=== PATIENT | female | born 1995 | race Caucasian/White ===

== ENCOUNTER 2017-05-10 11:48 | Emergency (ER) | payer OTHER, MEDICAID ==
[2017-05-10 12:00] VITALS: BP 122/89
[2017-05-10] MEDS ORDERED: Famotidine 20 MG Tab PO ONE (12:22)
[2017-05-10] MEDS ORDERED: predniSONE 20 MG Tab PO ONE (12:22)
[2017-05-10] MEDS ORDERED: diphenhydrAMINE 50 MG Cap PO ONE (12:22)
--- NOTE | 2017-05-10 12:27 | EDM.PDOC ---
ED HPI GENERAL MEDICAL PROBLEM - General Chief Complaint: Skin Complaint Stated Complaint: HIVES,VOMITING AND DIARRHEA Time Seen by Provider: 05/10/17 12:05 Source of Information: Reports: Patient History Limitations: Reports: No Limitations - History of Present Illness INITIAL COMMENTS - FREE TEXT/NARRATIVE: Patient is a 21-year-old female presents ED complaining of a rash that developed to her body early Wednesday morning. Rash has persistently gotten worse over the course of the past 2 days. Patient states she did develop nausea vomiting along with some diarrhea last night. had similar symptoms. Symptoms have resolved for gastroenteritis. Patient took a shower and noted the rash increased. She continues to itch it. Has utilized Benadryl topical cream with no significant improvements. She does note using new laundry soap starting last week. She has attempted to alleviate the itching with oatmeal bath with no luck. Rash spares her soles and palms. She denies any new lotions, medicines, foods, or any other exposure that may precipitated the rash. Denies any ingestion of bad or questionable food or recent out of county travel. - Related Data Allergies Allergy/AdvReac Type Severity Reaction Status Date / Time No Known Allergies Allergy Verified 05/10/17 11:54 Home Meds: Home Meds [id number]/Iron Fumarate/FA/DSS [ 19 Tablet] 1 tab PO DAILY 05/10/17 [ History] ED ROS GENERAL - Review of Systems Review Of Systems: See Below Constitutional: Reports: Decreased Appetite. Denies: Fever, Chills HEENT: Reports: No Symptoms Respiratory: Denies: Shortness of Breath, Wheezing Cardiovascular: Reports: No Symptoms GI/Abdominal: Reports: No Symptoms : Denies: Dysuria Musculoskeletal: Reports: No Symptoms Skin: Reports: Pruritis, Urticaria Neurological: Reports: No Symptoms ED EXAM, SKIN/RASH Exam: See Below Exam Limited By: No Limitations General Appearance: Alert, WD/WN, No Apparent Distress Ears: Normal External Exam, Normal Canal, Hearing Grossly Normal, Normal TMs Nose: Normal Inspection, Normal Mucosa, No Blood Throat/Mouth: Normal Inspection, Normal Oropharynx, Normal Voice, No Airway Compromise Head: Atraumatic, Normocephalic Neck: Supple, Non-Tender, Full Range of Motion Respiratory/Chest: No Respiratory Distress, Lungs Clear, Normal Breath Sounds, No Accessory Muscle Use, Chest Non-Tender Cardiovascular: Normal Peripheral Pulses, Regular Rate, Rhythm Peripheral Pulses: 2+: Radial (R) GI/Abdominal: Normal Bowel Sounds, Soft, Non-Tender, No Organomegaly Back Exam: Full Range of Motion Extremities: Normal Range of Motion, Non-Tender, No Pedal Edema, Normal Capillary Refill Neurological: Alert, Oriented, CN II-XII Intact, Normal Cognition, No Motor/ Sensory Deficits Psychiatric: Normal Affect, Normal Mood Skin: Warm, Dry, Other (urticaria) Location, Skin: Neck, Chest, Abdomen, Back, Upper Extremity, Right, Upper Extremity, Left, Lower Extremity, Right, Lower Extremity, Left, Generalized, Axillary. No: Palms, Soles Characteristics: Urticarial Associated features: No: Warmth, Tenderness, Induration, Wcaling, Lymphangitis, Inflammation, Crusting, Weeping, Rough Course - Vital Signs Last Recorded V/S: Last Vital Signs Temp 98.4 F 05/10/17 11:55 Pulse 94 05/10/17 11:55 Resp 18 05/10/17 11:55 BP 122/89 05/10/17 11:55 Pulse Ox 99 05/10/17 11:55 - Orders/Labs/Meds Meds: Medications Discontinued Medications Generic Name Dose Route Start Last Admin Trade Name Freq PRN Reason Stop Dose Admin Diphenhydramine HCl 50 mg 05/10/17 12:22 05/10/17 12:27 Benadryl PO 05/10/17 12:23 50 mg ONETIME ONE Administration Famotidine 40 mg 05/10/17 12:22 05/10/17 12:27 Pepcid PO 05/10/17 12:23 40 mg ONETIME ONE Administration Prednisone 40 mg 05/10/17 12:22 05/10/17 12:27 Prednisone PO 05/10/17 12:23 40 mg ONETIME ONE Administration - Re-Assessments/Exams Free Text/Narrative Re-Assessment/Exam: Patient has a urticaria rash generalized over her body. It is sparing the soles in the palms. Ordered prednisone 40 mg by mouth, Benadryl 50 mg by mouth, and Pepcid 40 mg by mouth. 05/10/17 12:48 Reassessment, urticaria is improving. Pruritus has subsided. Patient is ready to be discharged home. Departure - Departure Time of Disposition: 12:50 Disposition: Home, Self-Care 01 Condition: Good Clinical Impression: Urticaria - Discharge Information Instructions: Rash, Hives, [id number] Referrals: Kenya Amezcua EXTRACT WRINGER [Primary Care Provider] - Forms: ED Department Discharge Additional Instructions: Take the prednisone 40 mg every a.m for 5 days. If itching persists take benadryl 50mg PO every 6 hrs as needed. Will have you take pepcid 40mg PO every hs for the next 5 days as well. Followup with PCP in the next 3 days for reevaluation. Return to the E.D. as needed for any new or worsening symptoms. Refrain from using new laundry detergent. Rewash all clothes washed with new detergent. Refrain from itching or taking hot baths. Keep log of things you eat, drink, take, exposed to if rash persist.
== END 2017-05-10 13:10 | disposition home or self-care (01) ==
LOC: JD.ED 11:48
DX: L50.9 Urticaria, unspecified (principal)
CPT/HCPCS: 99284; A9270; 99283

== ENCOUNTER 2017-11-15 07:29 | Inpatient (IN) | payer OTHER, MEDICAID ==
--- NOTE | 2017-11-15 07:47 | PCM.LDHP ---
<Alex Zhao - Last Filed: 11/15/17 07:37> L&D History of Present Illness - General Date of Service: 11/15/17 Admit Problem/Dx: Admission Diagnosis/Problem Admission Diagnosis/Problem Source of Information: Patient History Limitations: Reports: No Limitations - History of Present Illness Introduction:: Linnette Trotter is a pleasant 22 year old with an MICA of 11/11/2017 and EGA of 40 weeks 4 days who presents to labor and delivery for induction. Her blood type is A - and she has had a negative antibody screening 04/02/2017. GBS was tested on 10/14/17 and was negative. She currently denies having had any contractions and reports she has not noticed any bloody vaginal discharge or fluid. She reports she has noticed an increased sensation of pressure in her pelvis and abdomen and reports at times it feels like the baby is putting pressure over her bladder causing her to urinate more frequently. 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: Dermatologic History: Reports: Eczema Social & Family History - Tobacco Use Smoking Status *Q: Never Smoker Second Hand Smoke Exposure: No - Caffeine Use Caffeine Use: Reports: Coffee - Recreational Drug Use Recreational Drug Use: No H&P Review of Systems - Review of Systems: Review Of Systems: See Below General: Reports: No Symptoms Pulmonary: Reports: No Symptoms Cardiovascular: Reports: No Symptoms Gastrointestinal: Reports: Abdominal Pain, Constipation (Patient reports ongoing constipation she reports has been going on throughout duration of ) Psychiatric: Reports: No Symptoms L&D Exam - Exam Exam: See Below - OB Specific Fundal Height In cm: 41 Movement: Active Heart Tones: Present Heart Tones per Min: 130 Heart Rate (FHR) Variability: Moderate (6-25 bmp) Presentation: Vertex - Villatoro Score Villatoro Score Effacement: 31-50% Villatoro Score Dilation: 1-2 cm - Exam General: Alert, Oriented HEENT: Conjunctiva Clear, EOMI, Mucosa Moist & Mize, Pupils Equal, Pupils Reactive Lungs: Clear to Auscultation, Normal Respiratory Effort Cardiovascular: Regular Rate, Regular Rhythm GI/Abdominal Exam: Normal Bowel Sounds, Soft, Non-Tender, No Organomegaly, No Distention, No Mass Back Exam: Normal Inspection, Full Range of Motion Extremities: Normal Inspection, No Pedal Edema Skin: Warm, Dry, Intact DTR: 2+: Bicep (L), Bicep (R), Patella (L), Patella (R) Psychiatric: Alert, Normal Affect, Normal Mood Problem List Initiated/Reviewed/Updated: Yes <DeniderrickAbhishek Lalo - Last Filed: 11/15/17 08:27> L&D History of Present Illness - General Admit Problem/Dx: Admission Diagnosis/Problem Admission Diagnosis/Problem L&D Exam - OB Specific Presentation: Vertex - Villatoro Score Villatoro Score Cervix Position: Posterior Villatoro Score Consistency: Soft Villatoro Score Effacement: 31-50% Villatoro Score Dilation: 1-2 cm Villatoro Score Infant's Station: -3 Villatoro Score Total: 4 - Problem List (1) 40 weeks gestation of SNOMED Code(s): 24292871 ICD Code: Z3A.40 - 40 WEEKS GESTATION OF Status: Acute Current Visit: Yes Problem List Initiated/Reviewed/Updated: No Assessment/Plan Comment:: Patient seen, examined, discussed with the student. Delivery
[2017-11-15] MEDS ORDERED: Oxytocin 10 Units/1 ML SDV IM ONE (09:13)
[2017-11-15] MEDS ORDERED: Sodium Chloride 0.9% 10 ML Syringe FLUSH PRN (09:13)
[2017-11-15] MEDS ORDERED: Oxytocin/Lactated Ringers 10 UNIT/1,000 ML BAG IV SCH (09:15)
[2017-11-15] MEDS: Lactated Ringers 1,000 ML IV SCH ×3 (09:37→16:28)
[2017-11-15] MEDS ORDERED: ePHEDrine 50 MG/ML SDV IVPUSH PRN (10:21)
[2017-11-15] MEDS ORDERED: diphenhydrAMINE 50 MG/ML SDV IVPUSH PRN (10:21)
[2017-11-15] MEDS ORDERED: fentaNYL 100 MCG/2 ML SDV EPIDUR PRN (10:21)
[2017-11-15] MEDS ORDERED: Bupivacaine/fentaNYL/NS 100 ML Bag EPIDUR SCH (10:30)
--- NOTE | 2017-11-15 13:25 | PCM.SN ---
- Free Text/Narrative Note: Cervix 3 cm, 80%, soft, posterior, vertex -1 amniotomy at 1323 clear fluid. Cat I FHR.
--- NOTE | 2017-11-15 13:51 | PCM.PREANE ---
Preanesthetic Assessment - Procedure Proposed Procedure: Continuous Labor Epidural - Anesthesia/Transfusion/Family Hx Anesthesia History: Prior Anesthesia Without Reaction Family History of Anesthesia Reaction: No Transfusion History: No Prior Transfusion(s) Intubation History: Unknown - Review of Systems General: No Symptoms Pulmonary: No Symptoms Cardiovascular: No Symptoms Gastrointestinal: No Symptoms, Other (GERD with ) Neurological: No Symptoms Other: Reports: None - Physical Assessment NPO Status Date: 11/15/17 NPO Status Time: 13:00 O2 Sat by Pulse Oximetry: 100 Respiratory Rate: 16 Vital Signs: Last Vital Signs Temp 36.4 C 11/15/17 09:15 Pulse 84 11/15/17 09:15 Resp 16 11/15/17 09:15 BP 136/78 11/15/17 09:15 Pulse Ox 100 11/15/17 09:15 Height: 1.6 m Weight: 95.527 kg ASA Class: 2 Mental Status: Alert & Oriented x3 Airway Class: Mallampati = 1 Dentition: Reports: Normal Dentition Thyro-Mental Finger Breadths: 3 Mouth Opening Finger Breadths: 5 ROM/Head Extension: Full Lungs: Clear to Auscultation, Normal Respiratory Effort Cardiovascular: Regular Rate, Regular Rhythm - Lab Values: Laboratory Last Values WBC 9.78 K/mm3 (3.98-10.04) 11/15/17 09:34 RBC 3.78 M/mm3 (3.98-5.22) L 11/15/17 09:34 Hgb 11.9 gm/L (11.2-15.7) 11/15/17 09:34 Hct 34.3 % (34.1-44.9) 11/15/17 09:34 MCV 90.7 fl (79.4-94.8) 11/15/17 09:34 MCH 31.5 pg (25.6-32.2) 11/15/17 09:34 MCHC 34.7 g/dl (32.2-35.5) 11/15/17 09:34 RDW Std Deviation 41.1 fL (36.4-46.3) 11/15/17 09:34 Plt Count 154 K/mm3 (182-369) L 11/15/17 09:34 MPV 11.2 fl (9.4-12.3) 11/15/17 09:34 Neut % (Auto) 75.4 % (34.0-71.1) H 11/15/17 09:34 Lymph % (Auto) 17.2 % (19.3-51.7) L 11/15/17 09:34 [place] % (Auto) 6.0 % (4.7-12.5) 11/15/17 09:34 Eos % (Auto) 0.8 (0.7-5.8) 11/15/17 09:34 Baso % (Auto) 0.1 % (0.1-1.2) 11/15/17 09:34 Neut # (Auto) 7.37 K/mm3 (1.56-6.13) H 11/15/17 09:34 Lymph # (Auto) 1.68 K/mm3 (1.18-3.74) 11/15/17 09:34 [place] # (Auto) 0.59 K/mm3 (0.24-0.36) H 11/15/17 09:34 Eos # (Auto) 0.08 K/mm3 (0.04-0.36) 11/15/17 09:34 Baso # (Auto) 0.01 K/mm3 (0.01-0.08) 11/15/17 09:34 - Allergies Allergies/Adverse Reactions: Allergies Allergy/AdvReac Type Severity Reaction Status Date / Time No Known Allergies Allergy Verified 05/10/17 11:54 - Blood Blood Available: Yes - Acknowledgements Anesthesia Type Planned: Epidural Pt an Appropriate Candidate for the Planned Anesthesia: Yes Alternatives and Risks of Anesthesia Discussed w Pt/Guardian: Yes Pt/Guardian Understands and Agrees with Anesthesia Plan: Yes PreAnesthesia Questionnaire - Past Health History Medical/Surgical History: Denies 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: : 2 Para: 1 LMP (Approximate): Dermatologic History: Reports: Eczema - SUBSTANCE USE Smoking Status *Q: Never Smoker Tobacco Use Within Last Twelve Months: No Second Hand Smoke Exposure: No Recreational Drug Use History: No - HOME MEDS Home Medications: Home Meds [id number]/Iron Fumarate/FA/DSS [ 19 Tablet] 1 tab PO DAILY 05/10/17 [ History] - CURRENT (IN HOUSE) MEDS Current Meds: Current Medications Diphenhydramine HCl (Benadryl) 25 mg IVPUSH Q6H PRN PRN Reason: Itching Diphtheria/Tetanus/Acell Pertussis (Adacel) 0.5 ml IM .ONCE ONE Stop: 11/16/17 12:01 Ephedrine Sulfate (Ephedrine Sulfate) 5 mg IVPUSH ASDIRECTED PRN PRN Reason: HYPOTENTSION Fentanyl (Sublimaze) 100 mcg EPIDUR Q3H PRN PRN Reason: PAIN Fentanyl/Bupivacaine HCl (Fentanyl/Bupivacaine/Ns 2 Mcg-0.125% 100 Ml) 100 ml EPIDUR ASDIRECTED ARIEL Lactated Ringer's (Ringers, Lactated) 1,000 mls @ 100 mls/hr IV ASDIRECTED ARIEL Last Admin: 11/15/17 09:37 Dose: 100 mls/hr Oxytocin/Lactated Ringer's (Pitocin In Lr 10 Units/1,000 Ml) 10 unit in 1,000 mls @ 12 mls/hr IV TITRATE ARIEL; 2 MUNITS/MIN PRN Reason: Protocol Last Titration: 11/15/17 12:53 Dose: 10 munits/min, 60 mls/hr Sodium Chloride (Saline Flush) 10 ml FLUSH ASDIRECTED PRN PRN Reason: Keep Vein Open Discontinued Medications Oxytocin (Pitocin) 10 unit IM ONETIME ONE Stop: 11/15/17 09:14
--- NOTE | 2017-11-15 15:23 | PCM.SN ---
- Free Text/Narrative Note: Cervix 5 cm, 100 % effaced, soft, midposition, vertex 0 station. Cat I FHR, good relief with epidural.
--- NOTE | 2017-11-15 16:35 | PCM.SN ---
- Free Text/Narrative Note: 1614 Called to assess epidural for break through pain. Level at T11 pain 8 out of 10. Bolus with 10 ml of 25% Bupivacaine VSS. Report to Misa CANDELARIO. Out of room at 1635.
--- NOTE | 2017-11-15 17:44 | PCM.SN ---
- Free Text/Narrative Note: Epidural stopped working, anesthesia placed hyperbaric spinal. Cervix 8 cm, 100 % effaced, soft, mid-position, Cat I FHR.
--- NOTE | 2017-11-15 18:03 | PCM.SN ---
- Free Text/Narrative Note: 1727 Called to room 30 for pain assessment. Patient crying pain 10 - 10 and request spinal for labor. Consent given patient sitting on the edge of the bed sterile technique, betadine X3, 1% local bleb, 25ga. pencan with introducer, clear CSF no heme no parasthesia, 1ml 25% bupivacaine with 1ml CSF injected, patient passively supine, patient rates pain at 0 -10, VSS report to RN, prior to spinal epidural D/C tip in tac, out of room at [id number].
--- NOTE | 2017-11-15 18:30 | PCM.SN ---
- Free Text/Narrative Note: Anterior lip. Feeling pressure in the pelvic area consistent with her being almost completely.
--- NOTE | 2017-11-15 19:14 | PCM.DEL ---
L & D Note - General Info Date of Service: 11/15/17 Mother's Due Date: 11/11/17 - Delivery Note Labor: Augmented by ARM, Augmented by Oxytocin Delivery Outcome: Livebirth (Male liveborn 1853 hrs. Wednesday11/15/17 vacuum assisted delivery times one application in the green less than 50 seconds PATY weight 3910 grams/8 pounds 9.9 ounces Apgars 8/9 shoulder cord right shoulder 1 reduced over right shoulder) Infant Delivery Method: Spontaneous Vaginal Delivery-Single Infant Delivery Mode: Vacuum Extraction (Times one in the green less than 50 seconds) Presentation: Left Occiput Anterior (PATY) Nuchal Cord: None (Shoulder cord times one and right shoulder) Prep: Povidone-Iodine (Betadine Anesthesia Type: Epidural (Initially), Spinal (Spinal placed after epidural wore off) Episiotomy Type: None Laceration: None Placenta: Intact, Spontaneous (Spontaneous delivery of placenta at 1900 hrs. Wednesday11/15/17 examined and tacked discarded) Cord: 3 Vessels Estimated Blood Loss: 250 Resuscitation Needed: No [place]: Suctioned, Bulb Syringe, Stimulated, Warmed, [place] Used, Warmer Used Provider: Abhishek Krishna Score 1 min: 8 Score 5 min: 9 - Patient Data Vitals - Most Recent: Last Vital Signs Temp 97.6 F 11/15/17 09:15 Pulse 84 11/15/17 09:15 Resp 16 11/15/17 13:51 BP 136/78 11/15/17 09:15 Pulse Ox 100 11/15/17 13:51 Weight - Most Recent: 210 lb 9.6 oz Lab Results Last 24 Hours: Laboratory Results - last 24 hr 11/15/17 Range/Units 09:34 WBC 9.78 (3.98-10.04) K/mm3 RBC 3.78 L (3.98-5.22) M/mm3 Hgb 11.9 (11.2-15.7) gm/L Hct 34.3 (34.1-44.9) % MCV 90.7 (79.4-94.8) fl MCH 31.5 (25.6-32.2) pg MCHC 34.7 (32.2-35.5) g/dl RDW Std Deviation 41.1 (36.4-46.3) fL Plt Count 154 L (182-369) K/mm3 MPV 11.2 (9.4-12.3) fl Neut % (Auto) 75.4 H (34.0-71.1) % Lymph % (Auto) 17.2 L (19.3-51.7) % [place] % (Auto) 6.0 (4.7-12.5) % Eos % (Auto) 0.8 (0.7-5.8) Baso % (Auto) 0.1 (0.1-1.2) % Neut # (Auto) 7.37 H (1.56-6.13) K/mm3 Lymph # (Auto) 1.68 (1.18-3.74) K/mm3 [place] # (Auto) 0.59 H (0.24-0.36) K/mm3 Eos # (Auto) 0.08 (0.04-0.36) K/mm3 Baso # (Auto) 0.01 (0.01-0.08) K/mm3 Med Orders - Current: Current Medications Diphenhydramine HCl (Benadryl) 25 mg IVPUSH Q6H PRN PRN Reason: Itching Diphtheria/Tetanus/Acell Pertussis (Adacel) 0.5 ml IM .ONCE ONE Stop: 11/16/17 12:01 Ephedrine Sulfate (Ephedrine Sulfate) 5 mg IVPUSH ASDIRECTED PRN PRN Reason: HYPOTENTSION Fentanyl (Sublimaze) 100 mcg EPIDUR Q3H PRN PRN Reason: PAIN Last Admin: 11/15/17 14:34 Dose: 100 mcg Fentanyl/Bupivacaine HCl (Fentanyl/Bupivacaine/Ns 2 Mcg-0.125% 100 Ml) 100 ml EPIDUR ASDIRECTED ARIEL Last Admin: 11/15/17 14:49 Dose: 100 ml Lactated Ringer's (Ringers, Lactated) 1,000 mls @ 100 mls/hr IV ASDIRECTED ARIEL Last Admin: 11/15/17 16:28 Dose: 500 mls/hr Oxytocin/Lactated Ringer's (Pitocin In Lr 10 Units/1,000 Ml) 10 unit in 1,000 mls @ 12 mls/hr IV TITRATE ARIEL; 2 MUNITS/MIN PRN Reason: Protocol Last Titration: 11/15/17 17:02 Dose: 0 munits/min, 0 mls/hr Sodium Chloride (Saline Flush) 10 ml FLUSH ASDIRECTED PRN PRN Reason: Keep Vein Open Discontinued Medications Oxytocin (Pitocin) 10 unit IM ONETIME ONE Stop: 11/15/17 09:14 Last Admin: 11/15/17 14:02 Dose: Not Given - Problem List & Annotations (1) 40 weeks gestation of SNOMED Code(s): 60658587 Code(s): Z3A.40 - 40 WEEKS GESTATION OF Status: Acute Current Visit: Yes (2) 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 SNOMED Code(s): 247891990 Code(s): O69.2XX0 - LABOR AND DEL COMP BY OTH CORD ENTANGLE, W COMPRSN, UNSP Status: Acute Current Visit: Yes (3) Vacuum extraction, delivered, current hospitalization SNOMED Code(s): 454485648 Code(s): O66.5 - ATTEMPTED APPLICATION OF VACUUM EXTRACTOR AND FORCEPS Status: Acute Current Visit: Yes - Problem List Review Problem List Initiated/Reviewed/Updated: No - My Orders Last 24 Hours: My Active Orders 11/15/17 09:13 Urinary Catheter Assessment [RC] ASDIRECTED Sodium Chloride 0.9% [Saline Flush] 10 ml FLUSH ASDIRECTED PRN Resuscitation Status Routine 11/15/17 09:15 Patient Status [ADT] Routine Activity as Tolerated [RC] PFP Communication Order [RC] ASDIRECTED Notify Provider [RC] PFP Notify Provider [RC] PRN Vital Signs [RC] PER UNIT ROUTINE Lactated Ringers [Ringers, Lactated] 1,000 ml IV ASDIRECTED Oxytocin/Lactated Ringers [Pitocin in LR 10 Units/1,000 ML] 10 unit in 1,000 ml IV TITRATE Electronic Heart Tones Ext w TOCO [WOMSER] Routine Electronic Heart Tones Internal [WOMSER] Per Unit Routine Peripheral IV Insertion Adult [OM.PC] Routine 11/15/17 09:16 Heart Tones [RC] ASDIRECTED Peripheral IV Care [RC] . DIRECTED 11/15/17 10:38 Vaccines to be Administered [RC] PER UNIT ROUTINE 11/15/17 Lunch Clear Liquid Diet [DIET] 11/16/17 12:00 Diphth,Pertuss(Acell),Tet Vac [Adacel] 0.5 ml IM .ONCE ONE - Plan Plan:: Patient seen, examined, discussed with the student. Delivery
[2017-11-15] MEDS ORDERED: Witch Hazel Medicated Pads 100/Jar TOP PRN (19:19)
[2017-11-15] MEDS ORDERED: Docusate Sodium 100 MG Cap PO PRN (19:19)
[2017-11-15] MEDS ORDERED: Lanolin 100% Cream 7 GM Tube TOP PRN (19:19)
[2017-11-15] MEDS ORDERED: Benzocaine/Menthol 20%-0.5% Spray 56 GM Canister TOP PRN (19:19)
[2017-11-15] MEDS ORDERED: Acetaminophen/HYDROcodone 325-5 MG Tab PO PRN (19:19)
[2017-11-15] MEDS ORDERED: Acetaminophen 325 MG Tab PO PRN (19:19)
[2017-11-15] MEDS: Ibuprofen 600 MG Tab PO PRN (19:47)
[2017-11-15] MEDS ORDERED: Bupivacaine 0.25% 10 ML SDV ONE (22:22)
[2017-11-16] MEDS: Ibuprofen 600 MG Tab PO PRN (05:10)
[2017-11-16] MEDS ORDERED: Multivitamins,Therapeutic Tab PO SCH (09:00)
--- NOTE | 2017-11-16 09:11 | PCM48HPAN ---
Post Anesthesia Note - EVALUATION WITHIN 48HRS OF ANESTHETIC Vital Signs in Normal Range: Yes Patient Participated in Evaluation: Yes Respiratory Function Stable: Yes Airway Patent: Yes Cardiovascular Function Stable: Yes Hydration Status Stable: Yes Pain Control Satisfactory: Yes Nausea and Vomiting Control Satisfactory: Yes Mental Status Recovered: Yes Resp Rate: 16 - COMMENTS/OBSERVATIONS Free Text/Narrative:: Epidural didn't work. Placed spinal for deliver which was marginal she said.
[2017-11-16] MEDS ORDERED: Diphtheria,Pertussis(Acell),Tetanus Vaccine 0.5 ML SDV IM ONE ×2 (12:00→17:15)
--- NOTE | 2017-11-16 12:28 | PCM.DCSUM1 ---
Discharge Summary - Hospital Course Free Text/Narrative:: uneventful postoperative course will be dismissed to 24 hours. See me in 1 week. [facility] LIVE L/D Delivery Note Patient Name: KRISHNA MACHADO Date of : 89 Patient Status: Inpatient Attending Provider: Abhishek Krishna Date: 11/15/17 19:06 Initialization Date: 11/15/17 19:06 L & D Note - General Info Date of Service: 11/15/17 Mother's Due Date: 11/11/17 - Delivery Note Labor: Augmented by ARM, Augmented by Oxytocin Delivery Outcome: Livebirth (Male liveborn 1853 hrs. Wednesday11/15/17 vacuum assisted delivery times one application in the green less than 50 seconds PATY weight 3910 grams/8 pounds 9.9 ounces Apgars 8/9 shoulder cord right shoulder 1 reduced over right shoulder) Infant Delivery Method: Spontaneous Vaginal Delivery-Single Delivery Mode: Vacuum Extraction (Times one in the green less than 50 seconds) Presentation: Left Occiput Anterior (PATY) Nuchal Cord: None (Shoulder cord times one and right shoulder) Prep: Povidone-Iodine (Betadine Anesthesia Type: Epidural (Initially), Spinal (Spinal placed after epidural wore off) Episiotomy Type: None Laceration: None Placenta: Intact, Spontaneous (Spontaneous delivery of placenta at 1900 hrs. Wednesday11/15/17 examined and tacked discarded) Cord: 3 Vessels Estimated Blood Loss: 250 Resuscitation Needed: No : Suctioned, Bulb Syringe, Stimulated, Warmed, [place] Used, Warmer Used Provider: Abhishek Krishna Score 1 min: 8 Score 5 min: 9 - Patient Data Vitals - Most Recent: Last Vital Signs Temp 97.6 F 11/15/17 09:15 Pulse 84 11/15/17 09:15 Resp 16 11/15/17 13:51 BP 136/78 11/15/17 09:15 Pulse Ox 100 11/15/17 13:51 Weight - Most Recent: 210 lb 9.6 oz Lab Results Last 24 Hours: Laboratory Results - last 24 hr 11/15/17 Range/Units 09:34 WBC 9.78 (3.98-10.04) K/mm3 RBC 3.78 L (3.98-5.22) M/mm3 Hgb 11.9 (11.2-15.7) gm/L Hct 34.3 (34.1-44.9) % MCV 90.7 (79.4-94.8) fl MCH 31.5 (25.6-32.2) pg MCHC 34.7 (32.2-35.5) g/dl RDW Std Deviation 41.1 (36.4-46.3) fL Plt Count 154 L (182-369) K/mm3 MPV 11.2 (9.4-12.3) fl Neut % (Auto) 75.4 H (34.0-71.1) % Lymph % (Auto) 17.2 L (19.3-51.7) % [place] % (Auto) 6.0 (4.7-12.5) % Eos % (Auto) 0.8 (0.7-5.8) Baso % (Auto) 0.1 (0.1-1.2) % Neut # (Auto) 7.37 H (1.56-6.13) K/mm3 Lymph # (Auto) 1.68 (1.18-3.74) K/mm3 [place] # (Auto) 0.59 H (0.24-0.36) K/mm3 Eos # (Auto) 0.08 (0.04-0.36) K/mm3 Baso # (Auto) 0.01 (0.01-0.08) K/mm3 Med Orders - Current: Current Medications Diphenhydramine HCl (Benadryl) 25 mg IVPUSH Q6H PRN PRN Reason: Itching Diphtheria/Tetanus/Acell Pertussis (Adacel) 0.5 ml IM .ONCE ONE Stop: 11/16/17 12:01 Ephedrine Sulfate (Ephedrine Sulfate) 5 mg IVPUSH ASDIRECTED PRN PRN Reason: HYPOTENTSION Fentanyl (Sublimaze) 100 mcg EPIDUR Q3H PRN PRN Reason: PAIN Last Admin: 11/15/17 14:34 Dose: 100 mcg Fentanyl/Bupivacaine HCl (Fentanyl/Bupivacaine/Ns 2 Mcg-0.125% 100 Ml) 100 ml EPIDUR ASDIRECTED ARIEL Last Admin: 11/15/17 14:49 Dose: 100 ml Lactated Ringer's (Ringers, Lactated) 1,000 mls @ 100 mls/hr IV ASDIRECTED ARIEL Last Admin: 11/15/17 16:28 Dose: 500 mls/hr Oxytocin/Lactated Ringer's (Pitocin In Lr 10 Units/1,000 Ml) 10 unit in 1,000 mls @ 12 mls/hr IV TITRATE ARIEL; 2 MUNITS/MIN PRN Reason: Protocol Last Titration: 11/15/17 17:02 Dose: 0 munits/min, 0 mls/hr Sodium Chloride (Saline Flush) 10 ml FLUSH ASDIRECTED PRN PRN Reason: Keep Vein Open Discontinued Medications Oxytocin (Pitocin) 10 unit IM ONETIME ONE Stop: 11/15/17 09:14 Last Admin: 11/15/17 14:02 Dose: Not Given - Problem List & Annotations (1) 40 weeks gestation of SNOMED Code(s): 47483288 Code(s): Z3A.40 - 40 WEEKS GESTATION OF Status: Acute Current Visit: Yes (2) 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 SNOMED Code(s): 317773656 Code(s): O69.2XX0 - LABOR AND DEL COMP BY OTH CORD ENTANGLE, W COMPRSChing, UNSP Status: Acute Current Visit: Yes (3) Vacuum extraction, delivered, current hospitalization SNOMED Code(s): 962468293 Code(s): O66.5 - ATTEMPTED APPLICATION OF VACUUM EXTRACTOR AND FORCEPS Status: Acute Current Visit: Yes - Problem List Review Problem List Initiated/Reviewed/Updated: No - My Orders Last 24 Hours: My Active Orders 11/15/17 09:13 Urinary Catheter Assessment [RC] ASDIRECTED Sodium Chloride 0.9% [Saline Flush] 10 ml FLUSH ASDIRECTED PRN Resuscitation Status Routine 11/15/17 09:15 Patient Status [ADT] Routine Activity as Tolerated [RC] PFP Communication Order [RC] ASDIRECTED Notify Provider [RC] PFP Notify Provider [RC] PRN Vital Signs [RC] PER UNIT ROUTINE Lactated Ringers [Ringers, Lactated] 1,000 ml IV ASDIRECTED Oxytocin/Lactated Ringers [Pitocin in LR 10 Units/1,000 ML] 10 unit in 1,000 ml IV TITRATE Electronic Heart Tones Ext w TOCO [WOMSER] Routine Electronic Heart Tones Internal [WOMSER] Per Unit Routine Peripheral IV Insertion Adult [OM.PC] Routine 11/15/17 09:16 Heart Tones [RC] ASDIRECTED Peripheral IV Care [RC] . DIRECTED 11/15/17 10:38 Vaccines to be Administered [RC] PER UNIT ROUTINE 11/15/17 Lunch Clear Liquid Diet [DIET] 11/16/17 12:00 Diphth,Pertuss(Acell),Tet Vac [Adacel] 0.5 ml IM .ONCE ONE - Plan Plan:: Patient seen, examined, discussed with the student. Delivery HPI Initial Comments: uneventful postoperative course will be dismissed to 24 hours. See me in 1 week. [facility] LIVE L/D Delivery Note Patient Name: KRISHNA MACHADO Date of : [birth year] Patient Status: Inpatient Attending Provider: Abhishek Krishna Date: 11/15/17 19:06 Initialization Date: 11/15/17 19:06 L & D Note - General Info Date of Service: 11/15/17 Mother's Due Date: 11/11/17 - Delivery Note Labor: Augmented by ARM, Augmented by Oxytocin Delivery Outcome: Livebirth (Male liveborn 1853 hrs. Wednesday11/15/17 vacuum assisted delivery times one application in the green less than 50 seconds PATY weight 3910 grams/8 pounds 9.9 ounces Apgars 8/9 shoulder cord right shoulder 1 reduced over right shoulder) Delivery Method: Spontaneous Vaginal Delivery-Single Delivery Mode: Vacuum Extraction (Times one in the green less than 50 seconds) Presentation: Left Occiput Anterior (PATY) Nuchal Cord: None (Shoulder cord times one and right shoulder) Prep: Povidone-Iodine (Betadine Anesthesia Type: Epidural (Initially), Spinal (Spinal placed after epidural wore off) Episiotomy Type: None Laceration: None Placenta: Intact, Spontaneous (Spontaneous delivery of placenta at 1900 hrs. Wednesday11/15/17 examined and tacked discarded) Cord: 3 Vessels Estimated Blood Loss: 250 Resuscitation Needed: No [place]: Suctioned, Bulb Syringe, Stimulated, Warmed, [place] Used, Warmer Used Provider: Abhishek Krishna Score 1 min: 8 Score 5 min: 9 - Patient Data Vitals - Most Recent: Last Vital Signs Temp 97.6 F 11/15/17 09:15 Pulse 84 11/15/17 09:15 Resp 16 11/15/17 13:51 BP 136/78 11/15/17 09:15 Pulse Ox 100 11/15/17 13:51 Weight - Most Recent: 210 lb 9.6 oz Lab Results Last 24 Hours: Laboratory Results - last 24 hr 11/15/17 Range/Units 09:34 WBC 9.78 (3.98-10.04) K/mm3 RBC 3.78 L (3.98-5.22) M/mm3 Hgb 11.9 (11.2-15.7) gm/L Hct 34.3 (34.1-44.9) % MCV 90.7 (79.4-94.8) fl MCH 31.5 (25.6-32.2) pg MCHC 34.7 (32.2-35.5) g/dl RDW Std Deviation 41.1 (36.4-46.3) fL Plt Count 154 L (182-369) K/mm3 MPV 11.2 (9.4-12.3) fl Neut % (Auto) 75.4 H (34.0-71.1) % Lymph % (Auto) 17.2 L (19.3-51.7) % [place] % (Auto) 6.0 (4.7-12.5) % Eos % (Auto) 0.8 (0.7-5.8) Baso % (Auto) 0.1 (0.1-1.2) % Neut # (Auto) 7.37 H (1.56-6.13) K/mm3 Lymph # (Auto) 1.68 (1.18-3.74) K/mm3 [place] # (Auto) 0.59 H (0.24-0.36) K/mm3 Eos # (Auto) 0.08 (0.04-0.36) K/mm3 Baso # (Auto) 0.01 (0.01-0.08) K/mm3 Med Orders - Current: Current Medications Diphenhydramine HCl (Benadryl) 25 mg IVPUSH Q6H PRN PRN Reason: Itching Diphtheria/Tetanus/Acell Pertussis (Adacel) 0.5 ml IM .ONCE ONE Stop: 11/16/17 12:01 Ephedrine Sulfate (Ephedrine Sulfate) 5 mg IVPUSH ASDIRECTED PRN PRN Reason: HYPOTENTSION Fentanyl (Sublimaze) 100 mcg EPIDUR Q3H PRN PRN Reason: PAIN Last Admin: 11/15/17 14:34 Dose: 100 mcg Fentanyl/Bupivacaine HCl (Fentanyl/Bupivacaine/Ns 2 Mcg-0.125% 100 Ml) 100 ml EPIDUR ASDIRECTED ARIEL Last Admin: 11/15/17 14:49 Dose: 100 ml Lactated Ringer's (Ringers, Lactated) 1,000 mls @ 100 mls/hr IV ASDIRECTED ARIEL Last Admin: 11/15/17 16:28 Dose: 500 mls/hr Oxytocin/Lactated Ringer's (Pitocin In Lr 10 Units/1,000 Ml) 10 unit in 1,000 mls @ 12 mls/hr IV TITRATE ARIEL; 2 MUNITS/MIN PRN Reason: Protocol Last Titration: 11/15/17 17:02 Dose: 0 munits/min, 0 mls/hr Sodium Chloride (Saline Flush) 10 ml FLUSH ASDIRECTED PRN PRN Reason: Keep Vein Open Discontinued Medications Oxytocin (Pitocin) 10 unit IM ONETIME ONE Stop: 11/15/17 09:14 Last Admin: 11/15/17 14:02 Dose: Not Given - Problem List & Annotations (1) 40 weeks gestation of SNOMED Code(s): 38642062 Code(s): Z3A.40 - 40 WEEKS GESTATION OF Status: Acute Current Visit: Yes (2) 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 SNOMED Code(s): 609431505 Code(s): O69.2XX0 - LABOR AND DEL COMP BY OTH CORD ENTANGLE, W COMPRSN, UNSP Status: Acute Current Visit: Yes (3) Vacuum extraction, delivered, current hospitalization SNOMED Code(s): 957948974 Code(s): O66.5 - ATTEMPTED APPLICATION OF VACUUM EXTRACTOR AND FORCEPS Status: Acute Current Visit: Yes - Problem List Review Problem List Initiated/Reviewed/Updated: No - My Orders Last 24 Hours: My Active Orders 11/15/17 09:13 Urinary Catheter Assessment [RC] ASDIRECTED Sodium Chloride 0.9% [Saline Flush] 10 ml FLUSH ASDIRECTED PRN Resuscitation Status Routine 11/15/17 09:15 Patient Status [ADT] Routine Activity as Tolerated [RC] PFP Communication Order [RC] ASDIRECTED Notify Provider [RC] PFP Notify Provider [RC] PRN Vital Signs [RC] PER UNIT ROUTINE Lactated Ringers [Ringers, Lactated] 1,000 ml IV ASDIRECTED Oxytocin/Lactated Ringers [Pitocin in LR 10 Units/1,000 ML] 10 unit in 1,000 ml IV TITRATE Electronic Heart Tones Ext w TOCO [WOMSER] Routine Electronic Heart Tones Internal [WOMSER] Per Unit Routine Peripheral IV Insertion Adult [OM.PC] Routine 11/15/17 09:16 Heart Tones [RC] ASDIRECTED Peripheral IV Care [RC] . DIRECTED 11/15/17 10:38 Vaccines to be Administered [RC] PER UNIT ROUTINE 11/15/17 Lunch Clear Liquid Diet [DIET] 11/16/17 12:00 Diphth,Pertuss(Acell),Tet Vac [Adacel] 0.5 ml IM .ONCE ONE - Plan Plan:: Patient seen, examined, discussed with the student. Delivery Brief History: uneventful postoperative course will be dismissed to 24 hours. See me in 1 week. [facility] LIVE . L/D Delivery Note. Patient Name: KRISHNA MACHADO [facility] Record Number: [id number]. Date of : [birth year]Patient Status: Inpatient. Attending Provider: Abhishek Krishna Number: [id number]. Date: 11/15/17 19:06Initialization Date: 08/23 19:06. L & D Note. - General Info. Date of Service: 11/15/17. Mother' s Due Date: 11/11/17. - Delivery Note. Labor: Augmented by ARM, Augmented by Oxytocin. Delivery Outcome: Livebirth (Male liveborn 1853 hrs. Wednesday11/15/17 vacuum assisted delivery times one application in the green less than 50 seconds PATY weight 3910 grams/8 pounds 9.9 ounces Apgars 8/9 shoulder cord right shoulder 1 reduced over right shoulder). Infant Delivery Method: Spontaneous Vaginal Delivery-Single. Infant Delivery Mode: Vacuum Extraction ( Times one in the green less than 50 seconds). Presentation: Left Occiput Anterior (PATY). Nuchal Cord: None (Shoulder cord times one and right shoulder) . Prep: Povidone-Iodine (Betadine. Anesthesia Type: Epidural (Initially), Spinal (Spinal placed after epidural wore off). Episiotomy Type: None. Laceration: None. Placenta: Intact, Spontaneous (Spontaneous delivery of placenta at 1900 hrs. Wednesday11/15/17 examined and tacked discarded). Cord: 3 Vessels. Estimated Blood Loss: 250. Resuscitation Needed: No. : Suctioned, Bulb Syringe, Stimulated, Warmed, [place] Used, Warmer Used. Provider: Abhishek Krishna. Score 1 min: 8. Score 5 min : 9. - Patient Data. Vitals - Most Recent: Last Vital Signs. Temp 97.6 F 09:15. Pulse 84 11/15/17 09:15. Resp 16 11/15/17 13:51. BP 136/78 11/15/17 09:15. Pulse Ox 100 11/15/17 13:51. Weight - Most Recent: 210 lb 9.6 oz. Lab Results Last 24 Hours: Laboratory Results - last 24 hr. Range/Units. 09:34. WBC 9.78 (3.98-10.04) K/mm3. RBC 3.78 L (3.98-5.22) M /mm3. Hgb 11.9 (11.2-15.7) gm/L. Hct 34.3 (34.1-44.9) %. MCV 90.7 (79.4- 94.8) fl. MCH 31.5 (25.6-32.2) pg. MCHC 34.7 (32.2-35.5) g/dl. RDW Std Deviation 41.1 (36.4-46.3) fL. Plt Count 154 L (182-369) K/mm3. MPV 11.2 ( 9.4-12.3) fl. Neut % (Auto) 75.4 H (34.0-71.1) %. Lymph % (Auto) 17.2 L ( 19.3-51.7) %. [place] % (Auto) 6.0 (4.7-12.5) %. Eos % (Auto) 0.8 (0.7-5.8). Baso % (Auto) 0.1 (0.1-1.2) %. Neut # (Auto) 7.37 H (1.56-6.13) K/mm3. Lymph # (Auto) 1.68 (1.18-3.74) K/mm3. [place] # (Auto) 0.59 H (0.24-0.36) K/ mm3. Eos # (Auto) 0.08 (0.04-0.36) K/mm3. Baso # (Auto) 0.01 (0.01-0.08) K/ mm3. Med Orders - Current: Current Medications. Diphenhydramine HCl (Benadryl ) 25 mg IVPUSH Q6H PRN. PRN Reason: Itching. Diphtheria/Tetanus/Acell Pertussis (Adacel) 0.5 ml IM .ONCE ONE. Stop: 11/16/17 12:01. Ephedrine Sulfate (Ephedrine Sulfate) 5 mg IVPUSH ASDIRECTED PRN. PRN Reason: HYPOTENTSION. Fentanyl (Sublimaze) 100 mcg EPIDUR Q3H PRN. PRN Reason: PAIN. Last Admin: 11/15/17 14:34 Dose: 100 mcg. Fentanyl/Bupivacaine HCl (Fentanyl /Bupivacaine/Ns 2 Mcg-0.125% 100 Ml) 100 ml EPIDUR ASDIRECTED ARIEL. Last Admin : 11/15/17 14:49 Dose: 100 ml. Lactated Ringer's (Ringers, Lactated) 1,000 mls @ 100 mls/hr IV ASDIRECTED ARIEL. Last Admin: 11/15/17 16:28 Dose: 500 mls/ hr. Oxytocin/Lactated Ringer's (Pitocin In Lr 10 Units/1,000 Ml) 10 unit in 1, 000 mls @ 12 mls/hr IV TITRATE ARIEL; 2 MUNITS/MIN. PRN Reason: Protocol. Last Titration: 11/15/17 17:02 Dose: 0 munits/min, 0 mls/hr. Sodium Chloride ( Saline Flush) 10 ml FLUSH ASDIRECTED PRN. PRN Reason: Keep Vein Open. Discontinued Medications. Oxytocin (Pitocin) 10 unit IM ONETIME ONE. Stop: 09:14. Last Admin: 11/15/17 14:02 Dose: Not Given. - Problem List & Annotations. (1) 40 weeks gestation of . SNOMED Code(s): 57632654. Code(s): Z3A.40 - 40 WEEKS GESTATION OF Status: Acute Current Visit: Yes. 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 SNOMED Code(s): 417475720. Code(s): O69.2XX0 - LABOR AND DEL COMP BY OTH CORD ENTANGLE, W COMPRSN, UNSP Status: Acute Current Visit: Yes. (3) Vacuum extraction, delivered, current hospitalization. SNOMED Code(s): 917012070. Code(s): O66.5 - ATTEMPTED APPLICATION OF VACUUM EXTRACTOR AND FORCEPS Status: Acute Current Visit: Yes. - Problem List Review. Problem List Initiated/Reviewed/Updated: No. - My Orders. Last 24 Hours: My Active Orders. 11/15/17 09:13. Urinary Catheter Assessment [RC] ASDIRECTED. Sodium Chloride 0.9% [Saline Flush] 10 ml FLUSH ASDIRECTED PRN. Resuscitation Status Routine. 11/15/17 09:15. Patient Status [ADT] Routine. Activity as Tolerated [RC] PFP. Communication Order [RC] ASDIRECTED. Notify Provider [RC] PFP. Notify Provider [RC] PRN. Vital Signs [RC] PER UNIT ROUTINE. Lactated Ringers [Ringers, Lactated] 1,000 ml IV ASDIRECTED. Oxytocin /Lactated Ringers [Pitocin in LR 10 Units/1,000 ML] 10 unit in 1,000 ml IV TITRATE. Electronic Heart Tones Ext w TOCO [WOMSER] Routine. Electronic Heart Tones Internal [WOMSER] Per Unit Routine. Peripheral IV Insertion Adult [OM.PC] Routine. 11/15/17 09:16. Heart Tones [RC] ASDIRECTED. Peripheral IV Care [RC] . DIRECTED. 11/15/17 10:38. Vaccines to be Administered [RC] PER UNIT ROUTINE. 11/15/17 Lunch. Clear Liquid Diet [DIET]. 11/16/17 12:00. Diphth,Pertuss(Acell),Tet Vac [Adacel] 0.5 ml IM .ONCE ONE. - Plan. Plan:: Patient seen, examined, discussed with the student. 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 SNOMED Code(s): 532372158 ICD Code: O69.2XX0 - LABOR AND DEL COMP BY OTH CORD ENTANGLE, W COMPRSN, UNSP Status: Acute Current Visit: Yes (3) Vacuum extraction, delivered, current hospitalization SNOMED Code(s): 769520465 ICD Code: O66.5 - ATTEMPTED APPLICATION OF VACUUM EXTRACTOR AND FORCEPS Status: Acute Current Visit: Yes - Patient Summary/Data Complications: none Consults: none Hospital Course: uneventful - Patient Instructions Diet: Regular Diet as Tolerated Activity, Other: nothing in the vagina x6 weeks Driving: Do Not Drive (x48 hrs) Showering/Bathing: May Shower Notify Provider of: Fever, Increased Pain, Swelling and Redness, Drainage, Nausea and/or Vomiting - Discharge Plan Home Medications: Home Meds [id number]/Iron Fumarate/FA/DSS [ 19 Tablet] 1 tab PO DAILY 05/10/17 [ History] Acetaminophen [Tylenol] 650 mg PO Q4H PRN tablet 11/16/17 [Rx] Benzocaine/Menthol [Dermoplast Pain Relief [place]] 1 spray TOP ASDIRECTED PRN #1 canister 11/16/17 [Rx] Docusate Sodium [Colace] 100 mg PO BID PRN cap 11/16/17 [Rx] Ibuprofen [IJD: Ibuprofen] 600 mg PO Q4H PRN tablet 11/16/17 [Rx] Lanolin [Lansinoh HPA] 1 applic TOP ASDIRECTED PRN #1 tube 11/16/17 [Rx] Referrals: Abhishek Krishna MD [Primary Care Provider] - (1 week) - Discharge Summary/Plan Comment DC Time >30 min.: No - Patient Data Vitals - Most Recent: Last Vital Signs Temp 97.6 F 11/15/17 09:15 Pulse 84 11/15/17 09:15 Resp 16 11/16/17 09:11 BP 136/78 11/15/17 09:15 Pulse Ox 100 11/15/17 13:51 Weight - Most Recent: 210 lb 9.6 oz I&O - Last 24 hours: Intake & Output 11/15/17 11/16/17 11/16/17 22:59 06:59 14:59 Intake Total 2019 10 Balance 2019 10 Lab Results - Last 24 hrs: Laboratory Results - last 24 hr 11/15/17 11/16/17 Range/Units 23:10 07:16 WBC 11.13 H (3.98-10.04) K/mm3 RBC 3.41 L (3.98-5.22) M/mm3 Hgb 10.8 L (11.2-15.7) gm/L Hct 31.3 L (34.1-44.9) % MCV 91.8 (79.4-94.8) fl MCH 31.7 (25.6-32.2) pg MCHC 34.5 (32.2-35.5) g/dl RDW Std Deviation 41.3 (36.4-46.3) fL Plt Count 142 L (182-369) K/mm3 MPV 11.5 (9.4-12.3) fl Neut % (Auto) 75.6 H (34.0-71.1) % Lymph % (Auto) 16.1 L (19.3-51.7) % [place] % (Auto) 7.1 (4.7-12.5) % Eos % (Auto) 0.4 L (0.7-5.8) Baso % (Auto) 0.1 (0.1-1.2) % Neut # (Auto) 8.42 H (1.56-6.13) K/mm3 Lymph # (Auto) 1.79 (1.18-3.74) K/mm3 [place] # (Auto) 0.79 H (0.24-0.36) K/mm3 Eos # (Auto) 0.04 (0.04-0.36) K/mm3 Baso # (Auto) 0.01 (0.01-0.08) K/mm3 Blood Type A NEGATIVE Gel Antibody Screen Negative Screen 0 ros/5 flds - neg RhIG Candidate? Yes Rhogam Indicated Yes, baby rh pos H Med Orders - Current: Current Medications Acetaminophen (Tylenol) 650 mg PO Q4H PRN PRN Reason: mild pain or fever Hydrocodone Bitart/Acetaminophen ([place] 325-5 Mg) 2 tab PO Q4H PRN PRN Reason: Pain (moderate 4-6) Benzocaine/Menthol (Dermoplast Pain Relief [place]) 0 gm TOP ASDIRECTED PRN PRN Reason: Perineal Comfort Measure Last Admin: 11/15/17 19:48 Dose: 1 canister Docusate Sodium (Colace) 100 mg PO BID PRN PRN Reason: Constipation Last Admin: 11/16/17 05:17 Dose: 100 mg Emollient Ointment (Lansinoh Hpa) 0 gm TOP ASDIRECTED PRN PRN Reason: Sore Nipples Ibuprofen (Motrin) 600 mg PO Q4H PRN PRN Reason: Mild pain or fever Last Admin: 11/16/17 05:10 Dose: 600 mg Multivitamins (Thera) 1 each PO DAILY ARIEL Last Admin: 11/16/17 08:37 Dose: 1 each [place] (Tucks) 1 pad TOP ASDIRECTED PRN PRN Reason: Hemorrhoid pain Last Admin: 11/15/17 19:48 Dose: 1 tub Discontinued Medications Diphenhydramine HCl (Benadryl) 25 mg IVPUSH Q6H PRN PRN Reason: Itching Diphtheria/Tetanus/Acell Pertussis (Adacel) 0.5 ml IM .ONCE ONE Stop: 11/16/17 12:01 Ephedrine Sulfate (Ephedrine Sulfate) 5 mg IVPUSH ASDIRECTED PRN PRN Reason: HYPOTENTSION Fentanyl (Sublimaze) 100 mcg EPIDUR Q3H PRN PRN Reason: PAIN Last Admin: 11/15/17 14:34 Dose: 100 mcg Fentanyl/Bupivacaine HCl (Fentanyl/Bupivacaine/Ns 2 Mcg-0.125% 100 Ml) 100 ml EPIDUR ASDIRECTED ARIEL Last Admin: 11/15/17 14:49 Dose: 100 ml Lactated Ringer's (Ringers, Lactated) 1,000 mls @ 100 mls/hr IV ASDIRECTED ARIEL Last Admin: 11/15/17 16:28 Dose: 500 mls/hr Oxytocin/Lactated Ringer's (Pitocin In Lr 10 Units/1,000 Ml) 10 unit in 1,000 mls @ 12 mls/hr IV TITRATE ARIEL; 2 MUNITS/MIN PRN Reason: Protocol Last Titration: 11/15/17 17:02 Dose: 0 munits/min, 0 mls/hr Oxytocin (Pitocin) 10 unit IM ONETIME ONE Stop: 11/15/17 09:14 Last Admin: 11/15/17 14:02 Dose: Not Given Sodium Chloride (Saline Flush) 10 ml FLUSH ASDIRECTED PRN PRN Reason: Keep Vein Open *Q Meaningful Use (DIS) - VTE *Q VTE Criteria *Q: - Stroke *Q Stroke Criteria *Q: - AMI *Q AMI Criteria *Q:
[2017-11-16 14:51] VITALS: BP 125/84
== END 2017-11-16 20:45 | disposition home or self-care (01) | DRG 775 ==
LOC: JD.OB 07:29 → OBSVTOIN 18:53 → JD.OB 18:53
PROVIDERS: ADMIT Obstetrics & Gynecology; ATTEND Obstetrics & Gynecology
PROC: 10D07Z6 Extraction of Products of Conception, Vacuum, Via Natural or Artificial Opening (ICD-10-PCS; principal; 2017-11-15)
PROC: 10907ZC Drainage of Amniotic Fluid, Therapeutic from Products of Conception, Via Natural or Artificial Opening (ICD-10-PCS; 2017-11-15)
PROC: 00HU33Z Insertion of Infusion Device into Spinal Canal, Percutaneous Approach (ICD-10-PCS; 2017-11-15)
PROC: 3E0R3BZ Introduction of Anesthetic Agent into Spinal Canal, Percutaneous Approach (ICD-10-PCS; 2017-11-15)
PROC: 3E0234Z Introduction of Serum, Toxoid and Vaccine into Muscle, Percutaneous Approach (ICD-10-PCS; 2017-11-16)
DX: O69.2XX0 Labor and delivery complicated by other cord entanglement, with compression, not applicable or unspecified (principal); Z3A.40 40 weeks gestation of pregnancy; Z37.0 Single live birth; Z23 Encounter for immunization
CPT/HCPCS: 36415; 36430; 51702; 59409; 85025; 85461; 86850; 86900; 86901; 90715; A9270-GY; J2590; J2790; J3010; J7120

== ENCOUNTER 2020-02-13 09:00 | Day surgery (SDC) | payer BC ==
[~2020-02-13 09:00] MED LIST: Lactated Ringers 1,000 ML IV SCH; Lidocaine 1%/Sod Bicarbonate in NS 8.4% 1 ML Syringe IDERM PRN; Scopolamine 1.5 MG Transdermal Patch TOP ONE; Sodium Chloride 0.9% 10 ML Syringe FLUSH PRN
[2020-02-13] MEDS ORDERED: Ondansetron 4 MG/2 ML SDV IVPUSH ONE (09:51)
--- NOTE | 2020-02-13 09:53 | PCM.PREANE ---
Preanesthetic Assessment - Procedure Proposed Procedure: suction d and c - Anesthesia/Transfusion/Family Hx Anesthesia History: No Prior Anesthesia Family History of Anesthesia Reaction: No Transfusion History: No Prior Transfusion(s) Intubation History: Unknown - Review of Systems General: Chills (with cytotec) Pulmonary: No Symptoms Cardiovascular: No Symptoms Gastrointestinal: Diarrhea (from cytotec), Nausea (from cytotec) Neurological: No Symptoms Other: Reports: None - Physical Assessment NPO Status Date: 02/12/20 NPO Status Time: 20:00 Vital Signs: 136/83 78 97% 97.1 16 Height: 5 ft 3 in Weight: 92.986 kg ASA Class: 2 Mental Status: Alert & Oriented x3 Airway Class: Mallampati = 1 Dentition: Reports: Normal Dentition Thyro-Mental Finger Breadths: 3 Mouth Opening Finger Breadths: 3 ROM/Head Extension: Full Lungs: Clear to Auscultation, Normal Respiratory Effort Cardiovascular: Regular Rate, Regular Rhythm, No Murmurs - Allergies Allergies/Adverse Reactions: Allergies Allergy/AdvReac Type Severity Reaction Status Date / Time No Known Allergies Allergy Verified 02/13/20 09:42 - Blood Blood Available: No - Acknowledgements Anesthesia Type Planned: MAC Pt an Appropriate Candidate for the Planned Anesthesia: Yes Alternatives and Risks of Anesthesia Discussed w Pt/Guardian: Yes Pt/Guardian Understands and Agrees with Anesthesia Plan: Yes PreAnesthesia Questionnaire - Past Health History Medical/Surgical History: Denies Medical/Surgical History Cardiovascular History: Reports: None Respiratory History: Reports: None Gastrointestinal History: Reports: None PLANS EXAMINER History: Reports: Endocrine/Metabolic History: Reports: Obesity/BMI 30+ Dermatologic History: Reports: Eczema - SUBSTANCE USE Smoking Status *Q: Never Smoker Tobacco Use Within Last Twelve Months: No Second Hand Smoke Exposure: No Days Per Week of Alcohol Use: 0 Recreational Drug Use History: No - CURRENT (IN HOUSE) MEDS Current Meds: Current Medications Lactated Ringer's (Ringers, Lactated) 1,000 mls @ 125 mls/hr IV ASDIRECTED ARIEL Stop: 02/13/20 23:00 Last Admin: 02/13/20 09:15 Dose: 125 mls/hr Lidocaine/Sodium Bicarbonate (Buffered Lidocaine 1% In Ns 8.4%) 0.25 ml IDERM ONETIME PRN PRN Reason: Prior to IV Start Stop: 02/13/20 18:00 Last Admin: 02/13/20 09:15 Dose: 0.25 ml Miscellaneous Information (Remove Patch) 0 ea TOP ONETIME ONE Stop: 02/16/20 09:01 Sodium Chloride (Saline Flush) 10 ml FLUSH ASDIRECTED PRN PRN Reason: Keep Vein Open Stop: 02/13/20 18:00 Discontinued Medications Scopolamine (Transderm-Scop) 1.5 mg TOP ONETIME ONE Stop: 02/13/20 09:01 Last Admin: 02/13/20 09:34 Dose: 1.5 mg
[2020-02-13] MEDS ORDERED: Propofol 200 MG/20 ML SDV ONE ×2 (10:11→11:06)
[2020-02-13] MEDS ORDERED: Midazolam 1 MG/ML 2 ML SDV ONE (10:12)
[2020-02-13] MEDS ORDERED: fentaNYL 100 MCG/2 ML SDV ONE (10:12)
[2020-02-13] MEDS ORDERED: Lidocaine 1% 4 ML ONE (10:14)
[2020-02-13] MEDS ORDERED: ceFAZolin 1 GM Vial ONE (10:21)
[2020-02-13] MEDS ORDERED: Ketamine 500 mg/10 ML MDV ONE (10:52)
[2020-02-13] MEDS ORDERED: Oxytocin 10 Units/1 ML SDV ONE (11:11)
--- NOTE | 2020-02-13 11:22 | PCM.OPNOTE ---
- General Post-Op/Procedure Note Date of Surgery/Procedure: 02/13/20 Operative Procedure(s): Suction and sharp curettage Pre Op Diagnosis: Missed Post-Op Diagnosis: Same Anesthesia Technique: General ET Tube Primary Surgeon: Abhishek Krishna Anesthesia Provider: Durga Pickard Prop Setter: Jackeline Herbert (RAFAEL) Reason Prop Setter Was Necessary: NA Role of Prop Setter: NA student observed Fluid Replacement, Intraop: 1,400 EBL in mLs: 50 Drain/Tube Comments:: None Complications: None Condition: Good Free Text/Narrative:: Patient was transported to the operating room placed in the low dorsal position SCDs in place and functioning of 2 g given intravenously prior to surgery. Timeout performed. Anesthesia revealed a 10-week size uterus no adnexal masses. The vagina was prepared and draped in a sterile fashion. The cervix was already dilated to a #10 Hegar 10 cannula was inserted without difficulty and suction curettage was performed followed by gentle sharp curettage followed by suction curettage all tissue sent to pathology for tissue evaluation. Patient had received RhoGam yesterday and approximately 2 weeks ago as well. ( Rh-) no blood transfusions were required none are anticipated unless her condition should change. She has Cytotec 400 mcg to take tomorrow morning. Patient took 800 mcg this morning at approximately 0800 hrs. Patient will return to see me in 2 weeks. Quantitative beta-hCG at that visit. Patient transported to postanesthesia care unit in satisfactory condition.
--- NOTE | 2020-02-13 11:31 | PCM48HPAN ---
Post Anesthesia Note - EVALUATION WITHIN 48HRS OF ANESTHETIC Vital Signs in Normal Range: Yes Patient Participated in Evaluation: Yes Respiratory Function Stable: Yes Airway Patent: Yes Cardiovascular Function Stable: Yes Hydration Status Stable: Yes Pain Control Satisfactory: Yes Nausea and Vomiting Control Satisfactory: Yes Mental Status Recovered: Yes Vital Signs: Last Vital Signs Temp 97.8 F 02/13/20 11:20 Pulse 98 02/13/20 11:20 Resp 16 02/13/20 11:20 BP 143/96 H 02/13/20 11:20 Pulse Ox 94 L 02/13/20 11:20
[2020-02-13 12:50] VITALS: BP 106/76; PULSE 77
== END 2020-02-13 12:45 | disposition home or self-care (01) ==
LOC: JD.SDS 09:00
PROVIDERS: ATTEND Obstetrics & Gynecology
DX: O02.1 Missed abortion (principal); E66.9 Obesity, unspecified; Z67.91 Unspecified blood type, Rh negative; Z68.36 Body mass index [BMI] 36.0-36.9, adult
CPT/HCPCS: 59820; A9270; J0690; J2001; J2250; J2405; J2590; J2704; J3010; J7120; 01965